=== PATIENT | female | born 1960 | race Caucasian/White ===

== ENCOUNTER 2023-10-21 10:34 | Emergency (ER) | payer BC, OTHER ==
[2023-10-21 10:43] VITALS: TEMP 98.4; BMI 25.6
[2023-10-21 11:58] VITALS: BP 126/90; PULSE 85; RESP 16
[2023-10-21] MEDS ORDERED: ACETAMINOPHEN 325 MG TABLET (FP) ONE (11:59)
[2023-10-21 12:00] LABS: HEMATOCRIT 46.1 % (32.4-45.2); HEMOGLOBIN 15.3 G/dL (10.7-15.3); MCH 28.1 pg (25.7-33.7); MCHC 33.2 g/dl (32.0-36.0); MEAN CELL VOLUME 84.6 fl (80-96); MEAN PLT VOLUME 8.3 fl (7.5-11.1); PLATELET COUNT 167.5 10^3/uL (134-434); RBC 5.45 10^6/uL (3.60-5.2); RDW 14.7 % (11.6-15.6); WHITE BLOOD COUNT 7.3 10^3/uL (4.0-10.8)
[2023-10-21] MEDS: ACETAMINOPHEN 325 MG TABLET (FP) PO ONE (12:01)
[2023-10-21 12:24] LABS: ALBUMIN 4.3 g/dl (3.4-5.0); ALK PHOS 60 U/L (45-117); ANION GAP 11 mmol/L (4-13); BILIRUBIN,TOTAL 0.9 mg/dl (0.2-1); CHLORIDE 97 mmol/L (98-107); CO2 27 mmol/L (21-32); CREATININE 0.7 mg/dl (0.6-1.3); GLUCOSE,RANDOM 289 mg/dl (74-106); SGOT/AST 13 U/L (15-37); SGPT/ALT 16 U/L (7-52); SODIUM 135 mmol/L (136-145); TOT PROT 7.2 g/dl (6.4-8.2)
[2023-10-21 13:18] LABS: PLATELET ESTIMATE ADEQUATE
== END 2023-10-21 12:37 | disposition home or self-care (01) ==
LOC: FER 10:34
DX: E11.65 Type 2 diabetes mellitus with hyperglycemia (principal); I10 Essential (primary) hypertension; M79.10 Myalgia, unspecified site
CPT/HCPCS: 36415; 80053; 82550; 84443; 84484; 85027; 93005; 99284-25